=== PATIENT | female | born 1965 | race Caucasian/White ===

== ENCOUNTER 2016-04-19 05:59 | Day surgery (SDC) | payer OTHER ==
[2016-04-18 11:00] VITALS: Ht 149.9 cm; Wt 72.0 kg
[2016-04-19] VITALS (11 sets, daily range): BP systolic 117–141; BP diastolic 66–87; PULSE 72–94; RESP 15–26
[~2016-04-19] VITALS: Ht 149.9 cm; Wt 72.0 kg
[~2016-04-19 05:59] MED LIST: IBUP800T25 PO; LEVO50TA71 PO; LOVA20TA PO; METF-382 PO; TRAM-40 PO
[2016-04-19] MEDS ORDERED: ROCURONIUM 50 MG INJ ONE (07:00)
[2016-04-19] MEDS ORDERED: LACTATED RINGER'S 1,000 ML IV* SCH (07:00)
[2016-04-19] MEDS ORDERED: PROPOFOL 20 ML ONE (08:27)
[2016-04-19] MEDS ORDERED: MIDAZOLAM 1 MG/ML 2 ML INJ ONE (08:28)
[2016-04-19] MEDS ORDERED: FENTAnyl 50 MCG/ML VIAL ONE ×2 (08:28→09:24)
--- NOTE | 2016-04-19 08:43 | HPN ---
Date/Time of Note Date/Time of Note DATE: 04/19/16 TIME: 08:43 Interval H&P Admission Note Pt. seen H&P reviewed: No system changes SHARRI ROCHA MD Apr 19, 2016 08:43
[2016-04-19] MEDS ORDERED: FENO160T13 PO (08:56)
[2016-04-19] MEDS ORDERED: LEVO100T87 PO (08:56)
[2016-04-19] MEDS ORDERED: OMEP20CA16 PO (08:56)
[2016-04-19] MEDS ORDERED: SUCCINYLCHOLINE CHLORIDE 100 MG/5 ML SYG IV ONE (08:58)
[2016-04-19] MEDS ORDERED: CEFAZOLIN 1 GM INJ ONE (09:18)
[2016-04-19] MEDS ORDERED: ONDANSETRON 4 MG INJ ONE (09:24)
[2016-04-19] MEDS ORDERED: METOCLOPRAMIDE 10 MG INJ ONE (09:24)
[2016-04-19] MEDS ORDERED: PHENYLephrine (100 MCG/ML) 5ML SYG ONE (09:24)
[2016-04-19] MEDS ORDERED: FAMOTIDINE 20 MG INJ ONE (09:24)
[2016-04-19] MEDS ORDERED: ESMOLOL 10 ML ONE (09:27)
--- NOTE | 2016-04-19 09:37 | PD.PPDC ---
SPEECH LANGUAGE PATHOLOGY ASSISTANT Discharge Instruction Diagnosis Final Diagnosis: postmenopausal bleeding Condition Patient Condition: Stable Diet Diet: Special Diet Activity/Restrictions Activity: May Shower Restrictions: No Sexual Activity Nothing in the Vagina No [place] No Tampons, douche Follow-up Follow-up with Physician: 2, Week/Weeks Return to clinic for SPEECH COACH Instructions: Fever greater than 101 Chills Worsening abdominal pain Excessive Vaginal Bleeding More than 2 pads per hour Unable to tolerate diet SHARRI ROCHA MD Apr 19, 2016 09:37
--- NOTE | 2016-04-19 10:49 | OPR ---
DATE OF OPERATION: 04/19/2016 PREOPERATIVE DIAGNOSIS: Prominent endometrium, postmenopausal bleeding. POSTOPERATIVE DIAGNOSIS: See pathological report. OPERATION PERFORMED: Fractional dilatation and curettage. ANESTHESIA: General. ANESTHESIOLOGIST: Patricio Lew DO SURGEON: Philipp Heredia MD ESTIMATED BLOOD LOSS: Negligible. PROCEDURE: Under appropriate induction of general anesthesia, the patient was placed in dorsal lith otomy position. Perineal area and vagina wall was prepped and draped in usual aseptic manner. Bima nual examination was limited due to the body habitus. Weighted speculum introduced. There is a fir st degree of uterine prolapse noted and the cervix was identified. Anterior lip of cervix was grasp ed with a single tooth tenaculum and cervical curettage was performed with obtaining scanty tissue w hich was sent to pathology and cavity was sounded, which was 7.5 cm in depth and was dilated gradual ly enough to submit a small uterine curet which was inserted and the entire uterine cavity was curet martine in all directions without any irregularity noted. The procedure was completed. All instruments were removed from the operative field. Patient withstood procedure well and was [place] [facility] [place] in [place]. Dictated By: PHILIPP ROSALES/MAURICE Conf#: [id number] DID#: [id number]
== END 2016-04-19 11:33 | disposition home or self-care (01) ==
LOC: SDS 05:59
PROVIDERS: ATTEND Obstetrics & Gynecology
DX: N95.0 Postmenopausal bleeding (principal); I10 Essential (primary) hypertension; E11.9 Type 2 diabetes mellitus without complications; E03.9 Hypothyroidism, unspecified
CPT/HCPCS: 58120; 82962; 84703; 88305; J0330; J0690; J2250; J2405; J2765; J3010; Z7512; Z7610; J2370